=== PATIENT | male | born 1950 | race Caucasian/White ===

== ENCOUNTER 2021-06-19 09:54 | Inpatient (IN) | payer OTHER ==
[~2021-06-19] VITALS: Ht 190.5 cm; Wt 80.4 kg
[2021-06-19 10:39] LABS: BASOPHILS ABSOLUTE AUTO 0.08 K/mm3 (0.00-0.23); BASOPHILS PERCENT AUTO 1 % (0-2); EOSINOPHILS ABSOLUTE AUTO 0.05 K/mm3 (0.00-0.68); EOSINOPHILS PERCENT AUTO 1 % (0-6); Hematocrit 27.5 % (37.0-53.0); Hemoglobin 9.4 g/dL (13.5-17.5); IMMATURE GRAN ABSOLUTE AUTO 0.04 K/mm3 (0.00-0.10); IMMATURE GRAN PERCENT AUTO 0 % (0-1); LYMPHOCYTES PERCENT AUTO 23 % (21-46); MONOCYTES ABSOLUTE AUTO 0.91 K/mm3 (0.16-1.47); MONOCYTES PERCENT AUTO 10 % (4-13); Mean Corpuscular HGB 35.5 pg (26.0-34.0); Mean Corpuscular HGB Conc 34.2 g/dL (31.5-36.5); Mean Corpuscular Volume 104 fL (80-100); NEUTROPHILS ABSOLUTE AUTO 6.01 K/mm3 (1.96-9.15); NEUTROPHILS PERCENT AUTO 65 % (41-73); RDW Coefficient Variation 15.7 % (11.7-14.2); RDW Standard Deviation 59.9 fL (35.1-46.3); Red Blood Cell Count 2.65 M/mm3 (4.30-5.90); White Blood Cell Count 9.19 K/mm3 (4.00-11.30)
[2021-06-19 10:40] LABS: Mean Platelet Volume 11.4 fL (9.1-12.4)
[2021-06-19 10:51] LABS: Alanine Aminotransfer (ALT/SGP 34 U/L (12-78); Albumin, Blood 2.1 g/dL (3.4-5.0); Albumin/Globulin Ratio 0.6 (0.8-1.8); Alk Phos 196 U/L (50-136); Anion Gap 7 mmol/L (6-16); Aspartate Aminotrans (AST/SGOT 60 U/L (12-37); Bilirubin, Direct 0.9 mg/dL (0.0-0.3); Bilirubin, Indirect 1.4 mg/dL (0.1-0.7); Bilirubin, Total 2.3 mg/dL (0.1-1.0); Blood Urea Nitrogen 21 mg/dL (8-24); Bun/Creatinine Ratio 19.1 (12.0-20.0); CO2, Blood 25 mmol/L (21-32); Chloride, Blood 107 mmol/L (98-108); Globulin, Blood 3.7 g/dL (2.2-4.0); Glomerular Filtration Rate >60 (60-); Glucose, Blood 113 mg/dL (70-99); Magnesium, Blood 1.7 mg/dL (1.6-2.4); Potassium, Blood 3.8 mmol/L (3.5-5.5); Sodium, Blood 139 mmol/L (136-145); Total Protein, Blood 5.8 g/dL (6.4-8.2); Troponin I <0.015 ng/mL (0.000-0.040)
[2021-06-19 11:03] LABS: Platelet Count 108 K/mm3 (150-400)
[2021-06-19 11:06] LABS: International Normalized Ratio 1.31; Prothrombin Time Results 13.5 Sec (9.7-11.5)
[2021-06-19 13:13] LABS: Lactate Dehydrogenase, Body Fl 39 U/L; Protein, Body Fluid 0.7 g/dL
[2021-06-19 13:16] LABS: Automated BF WBC Count 0.106 K/mm3 (0-999); Body Fluid WBC Count 106 /mm3 (0-999)
[2021-06-19 14:11] LABS: RBC Count, Body Fluid 23 /mm3 (0-0)
[2021-06-19 14:16] LABS: Color, Body Fluid L Yellow (None-Yellow); Total Cell Count, Body Fluid 100
[2021-06-19 14:18] LABS: Appearance, Body Fluid Clear (Clear)
[2021-06-19 14:24] LABS: Influenza A, PCR NEGATIVE (NEGATIVE); Influenza B, PCR NEGATIVE (NEGATIVE); Resp Syncytial Virus, PCR NEGATIVE (NEGATIVE); SARS-Cov-2 (COVID-19) PCR, MMC NEGATIVE (NEGATIVE)
[2021-06-19 14:31] LABS: Hematocrit 25.2 % (37.0-53.0); Hemoglobin 8.4 g/dL (13.5-17.5)
--- NOTE | 2021-06-19 18:11 | NUR ---
SHIFT SUMMARY PT HAS BEEN RESTING, NAPPING OFF AND ON, SINCE ADMISSION. PT HAS EXPRESSED MILD DISCOMFORT WITH IV SITE AND TELEMETRY PATCHES, REPOSITIONG AND CARE WHEN HANDLING LINES AND CORDS HAVE BEEN UTILIZED TO ADDRESS DISCOMFORT. VSS SINCE ARRIVAL. NO ACUTE CHANGES TO CONDITION.
--- NOTE | 2021-06-19 19:35 | NUR ---
PATIENT LEFT FOR PROCEDURE, PRIOR TO LEAVING PATIENT WAS INAPPROPRIATE " HER PUSSY SMELLS CAN YOU IMAGINE?" BRENDA CHRISTIANBOWLING BALL PATCHER AND MYSELF DIDN'T ASK HIM TO ELABORATE AND IGNORED THE COMMENT. ANXIOUS ALERT, LUNGS ARE COARSE, RHONCHI FINE CRACKLES AT THE BASES WITH NOTED SOB AND WHEEZING WITH TALKING, ABDOMEN IS DISTENDED FIRM AND TENDER WITH HYPOACTIVE BT X 4, REFER TO ASSESSMENT FOR OTHER DETAILS.
--- NOTE | 2021-06-19 19:49 | NUR ---
INTO SDS VIA GURNEY FROM PCU. History, Chart, Medications and Allergies reviewed before start of procedure.Patient confirms NPO status and agrees with scheduled surgery.LUNGS COURSE AND DIMINISHED THROUGHOUT.ANESTHESIA NOTIFIED.PT CURRENTLY DOING BREATHING TREATMENT.
--- NOTE | 2021-06-19 20:07 | NUR ---
06/19/212006 Lauryn Cabezas History, Chart, Medications and Allergies reviewed before start of procedure.MONITOR INTACT WITH CONTINUOUS PULSE OXIMETRY, 3 LEAD AND INTERMITTENT BP.O2 VIA N/C INTACT THROUGHOUT SEDATION/PROCEDURE. See Anesthesia record
--- NOTE | 2021-06-19 21:09 | NUR ---
PATIENT RETURNED ALERT AND ORIENTATED, VSS AND WTCM PATIENT IS ABLE TO DRINK WATER NO NOTED DIFFICULTIES. REPORT GIVEN AT BED SIDE REQUESTED THAT SURGICAL MEDS BE REMOVED OR SIGNED OFF ON AUG.
[2021-06-19 21:40] LABS: Hematocrit 25.7 % (37.0-53.0); Hemoglobin 8.3 g/dL (13.5-17.5)
[2021-06-20 03:35] LABS: BASOPHILS ABSOLUTE AUTO 0.07 K/mm3 (0.00-0.23); BASOPHILS PERCENT AUTO 1 % (0-2); EOSINOPHILS ABSOLUTE AUTO 0.16 K/mm3 (0.00-0.68); EOSINOPHILS PERCENT AUTO 3 % (0-6); Hematocrit 22.7 % (37.0-53.0); Hemoglobin 7.5 g/dL (13.5-17.5); IMMATURE GRAN ABSOLUTE AUTO 0.02 K/mm3 (0.00-0.10); IMMATURE GRAN PERCENT AUTO 0 % (0-1); LYMPHOCYTES ABSOLUTE AUTO 1.73 K/mm3 (0.84-5.20); LYMPHOCYTES PERCENT AUTO 34 % (21-46); MONOCYTES ABSOLUTE AUTO 0.56 K/mm3 (0.16-1.47); MONOCYTES PERCENT AUTO 11 % (4-13); Mean Corpuscular HGB 35.4 pg (26.0-34.0); Mean Corpuscular Volume 107 fL (80-100); Mean Platelet Volume 10.8 fL (9.1-12.4); NEUTROPHILS ABSOLUTE AUTO 2.58 K/mm3 (1.96-9.15); NEUTROPHILS PERCENT AUTO 50 % (41-73); Platelet Count 84 K/mm3 (150-400); RDW Standard Deviation 62.7 fL (35.1-46.3); Red Blood Cell Count 2.12 M/mm3 (4.30-5.90); White Blood Cell Count 5.12 K/mm3 (4.00-11.30)
[2021-06-20 03:46] LABS: International Normalized Ratio 1.29; Prothrombin Time Results 13.3 Sec (9.7-11.5)
--- NOTE | 2021-06-20 04:41 | NUR ---
PATIENT REQUIRED 2L NC DESATURATIONS TO 88% WITH APNEIC MOMENTS WITH MOUTH BREATHING DURING SLEEP, INTERMITTENT HYPOTENSION NOTED, NORMAL SALINE RUNNING AT 75ML/HR WILL CONTINUE TO MONITOR UNTIL CHANGE OF SHIFT.
[2021-06-20 04:45] LABS: Alanine Aminotransfer (ALT/SGP 29 U/L (12-78); Albumin, Blood 1.8 g/dL (3.4-5.0); Albumin/Globulin Ratio 0.6 (0.8-1.8); Alk Phos 157 U/L (50-136); Anion Gap 5 mmol/L (6-16); Aspartate Aminotrans (AST/SGOT 49 U/L (12-37); Bilirubin, Total 1.6 mg/dL (0.1-1.0); Blood Urea Nitrogen 20 mg/dL (8-24); CO2, Blood 26 mmol/L (21-32); Chloride, Blood 110 mmol/L (98-108); Creatinine, Blood 1.11 mg/dL (0.60-1.20); Glomerular Filtration Rate >60 (60-); Glucose, Blood 121 mg/dL (70-99); Magnesium, Blood 1.7 mg/dL (1.6-2.4); Potassium, Blood 4.3 mmol/L (3.5-5.5); Sodium, Blood 141 mmol/L (136-145); Total Protein, Blood 4.8 g/dL (6.4-8.2)
[2021-06-20 09:10] LABS: HBSAG SCREEN Negative (Negative); HEP A AB, IGM Negative (Negative); HEP B CORE AB, IGM Negative (Negative); HEP B CORE AB, TOT Negative (Negative); HEP C VIRUS AB 0.3 (0.0-0.9)
--- NOTE | 2021-06-20 11:14 | NUR ---
PT TRANSPORTED TO IMAGING BY CART.
[2021-06-20 13:51] LABS: Hematocrit 23.2 % (37.0-53.0); Hemoglobin 7.5 g/dL (13.5-17.5)
--- NOTE | 2021-06-20 17:55 | NUR ---
SHIFT SUMMARY PT HAS BEEN ALERT AND ORIENTED, RESTING IN BED. PT HAS BEEN COOPERATIVE WITH CARE. PT HAS HAD MODERATE DIFFICULTY HEARING. PT C/O ABDOMINAL PAIN 8/10 PRIOR TO PARACENTESIS, TREATED PER EMAR DURING IMAGING, AND 4/10 POST PARACENTESIS. VSS NO ACUTE CHANGES IN CONDITION.
--- NOTE | 2021-06-20 21:04 | NUR ---
PATIENT LETHARGIC AT BEGINNING OF SHIFT, HYPOTENSIVE 75/46 RECEIVED NEW ORDERS FOR NORMAL SALINE 500ML BOLUS, PATIENT BECAME MORE ALERT AND ORIENTATED, SITTING UP IN BED SOB NOTED WITH TALKING WHEEZING AND DRY COUGH, UPON GETTING VITALS PATIENT STARTING TOUCHING HIMSELF INAPPROPRIATELY REPORTED TO CHARGE NURSES. PATIENT C/O OF BACK PAIN AFTER COMING BACK FROM PARENCENTESIS AND STILL IN PAIN 01/29 UNABLE TO GIVE PAIN MEDICATION AT THIS TIME R/T HYPOTENSIVE. WILL CONTINUE TO MONITOR VITALS.
--- NOTE | 2021-06-21 04:25 | NUR ---
SHIFT SUMMARY CLAUDIA: CLAUDIA REMAINED HYPOTENSIVE WITH NO SIGNS OF DISTRESS. WILL START MIDODRINE IN THE AM. HE HAD A GOOD NIGHT OF SLEEP, USED THE CALL LIGHT APPROPRIATELY.
[2021-06-21 04:49] LABS: BASOPHILS ABSOLUTE AUTO 0.06 K/mm3 (0.00-0.23); BASOPHILS PERCENT AUTO 1 % (0-2); EOSINOPHILS ABSOLUTE AUTO 0.17 K/mm3 (0.00-0.68); EOSINOPHILS PERCENT AUTO 4 % (0-6); Hematocrit 21.1 % (37.0-53.0); Mean Corpuscular HGB 35.9 pg (26.0-34.0); Mean Corpuscular HGB Conc 33.2 g/dL (31.5-36.5); Mean Corpuscular Volume 108 fL (80-100); Mean Platelet Volume 11.3 fL (9.1-12.4); Platelet Count 76 K/mm3 (150-400); RDW Coefficient Variation 15.9 % (11.7-14.2); RDW Standard Deviation 62.4 fL (35.1-46.3); Red Blood Cell Count 1.95 M/mm3 (4.30-5.90); White Blood Cell Count 4.29 K/mm3 (4.00-11.30)
[2021-06-21 05:01] LABS: IMMATURE GRAN ABSOLUTE AUTO 0.03 K/mm3 (0.00-0.10); IMMATURE GRAN PERCENT AUTO 1 % (0-1); LYMPHOCYTES ABSOLUTE AUTO 1.39 K/mm3 (0.84-5.20); LYMPHOCYTES PERCENT AUTO 32 % (21-46); MONOCYTES ABSOLUTE AUTO 0.53 K/mm3 (0.16-1.47); MONOCYTES PERCENT AUTO 12 % (4-13); NEUTROPHILS ABSOLUTE AUTO 2.11 K/mm3 (1.96-9.15); NEUTROPHILS PERCENT AUTO 49 % (41-73)
[2021-06-21 05:59] LABS: Alanine Aminotransfer (ALT/SGP 25 U/L (12-78); Albumin, Blood 2.2 g/dL (3.4-5.0); Albumin/Globulin Ratio 0.8 (0.8-1.8); Alk Phos 139 U/L (50-136); Anion Gap 4 mmol/L (6-16); Aspartate Aminotrans (AST/SGOT 40 U/L (12-37); Bilirubin, Total 1.6 mg/dL (0.1-1.0); Blood Urea Nitrogen 19 mg/dL (8-24); CO2, Blood 27 mmol/L (21-32); Calcium, Blood 7.9 mg/dL (8.5-10.1); Chloride, Blood 108 mmol/L (98-108); Globulin, Blood 2.6 g/dL (2.2-4.0); Glomerular Filtration Rate >60 (60-); Glucose, Blood 103 mg/dL (70-99); Potassium, Blood 4.1 mmol/L (3.5-5.5); Sodium, Blood 139 mmol/L (136-145); Total Protein, Blood 4.8 g/dL (6.4-8.2)
[2021-06-21 15:13] LABS: Hematocrit 23.3 % (37.0-53.0); Hemoglobin 7.8 g/dL (13.5-17.5)
--- NOTE | 2021-06-21 17:41 | NUR ---
PATIENT'S FRIEND UNABLE TO PICK PATIENT UP TODAY FOR DISCHARGE.
--- NOTE | 2021-06-21 18:47 | NUR ---
SHIFT SUMMARY PATIENT RESTING IN BED. PATIENT HYPOTENSIVE T/O SHIFT WITH NO SIGNS OF DISTESS. MEDICATED PER AUG. PATIENT ADAMENT ABOUT GOING HOME TODAY AND BECAME VERY AGITATED. ONCE DISCHARGE ORDERS IN PLACE PATIENT FOUND OUT FRIEND WAS UNABLE TO TAKE HIM HOME TODAY AND WAS MORE AGREEABLE TO STAYING. NO SIGNIFICANT EVENTS T/O SHIFT. WILL CONTINUE TO MONITOR.
[2021-06-22] MEDS ORDERED: FURO20 PO (12:46)
[2021-06-22] MEDS ORDERED: Midodrine HCl5 MG PO (12:47)
[2021-06-22] MEDS ORDERED: LACT10SY PO (12:47)
[2021-06-22] MEDS ORDERED: VISBIOME 112.51 EACH PO (12:48)
[2021-06-22] MEDS ORDERED: SPIR50 PO (12:48)
[2021-06-22] MEDS ORDERED: CEPH500 PO (12:48)
[2021-06-22] MEDS ORDERED: PANT40 PO (12:50)
--- NOTE | 2021-06-22 16:38 | NUR ---
DISCHARGE SUMMARY: PATIENT REPORTED SOME PAIN THROUGHOUT THE SHIFT RELATED TO A PULLED MUSCLE. DENIED NEED FOR INTERVENTION. PATIENT ABLE TO TRANSFER INDEPENDENTLY TO CHAIR AND BSC. PATIENT TOLERATED BEING ON ROOM AIR AND DID NOT QUALIFY FOR HOME O2 WITH RT. PATIENT TO BE DISCHARGED TODAY. PATIENT'S NEIGHBOR CAME TO GET THE PATIENT. PATIENT REFUSED TO GIVE THE NEIGHBOR HIS MEDICARE CARD TO GET THE PRESCRIPTIONS. NEIGHBOR ATTEMPTED WITH [facility], BUT WAS TURNED AWAY FROM [facility]. PATIENT'S NEIGHBOR WAS FORCED TO LEAVE BEFORE TRANSFERRING PATIENT HOME DUE TO TIME CONSTRAINTS. PATIENT REPORTED THAT IF WE WERE ABLE TO ASSIST WITH TRANSFER HOME, THAT HE COULD GET INTO HIS WHEELCHAIR AT HOME AND DRIVE TO [facility]. PATIENT ASSURED RN THAT HE WOULD TRY TO GET TO THE PHARMACY TONIGHT. LAST DOSE OF MIDODRINE GIVEN PRIOR TO DISCHARGE. DISCUSSED WITH NIKKO WILDER AND ELIDA PAY CAB RIDE WAS ARRANGED. PATIENT NOTIFIED NEIGHBOR AND THEY REPORTED THAT THEY WOULD BE ABLE TO HELP GET THE PATIENT'S WHEELCHAIR FROM THE HOUSE TO THE CAB. PATIENT AFFIRMED THAT HE WANTED TO GO TONIGHT AND THAT HE DID NOT WANT TO RETURN, THEREFORE, HE WAS GOING TO TAKE THE STEPS/MEDICATION TO AVOID HOSPITALIZATION. PATIENT DISCHARGED WITH COMPLIANCE TESTING ANALYST TO WAITING CAB. PATIENT STABLE AT TIME OF DISCHARGE.
== END 2021-06-22 16:20 | disposition home health service (06) | DRG 432 ==
LOC: ER 09:54 → ERHOLD 13:03 → PCU 13:03 → MEDS 06-20 22:31
PROVIDERS: Nurse Practitioner Acute Care; Physician Assistant; Student in an Organized Health Care Education/Training Program; ADMIT Internal Medicine
PROC: 0DJ08ZZ Inspection of Upper Intestinal Tract, Via Natural or Artificial Opening Endoscopic (ICD-10-PCS; 2021-06-19)
PROC: 0W9G3ZX Drainage of Peritoneal Cavity, Percutaneous Approach, Diagnostic (ICD-10-PCS; principal; 2021-06-19 15:45)
PROC: 0W9G3ZZ Drainage of Peritoneal Cavity, Percutaneous Approach (ICD-10-PCS; 2021-06-20)
DX: K70.31 Alcoholic cirrhosis of liver with ascites (principal); G93.41 Metabolic encephalopathy; I81 Portal vein thrombosis; K92.1 Melena; D62 Acute posthemorrhagic anemia; E87.2 Acidosis; K76.6 Portal hypertension; E72.20 Disorder of urea cycle metabolism, unspecified; I85.10 Secondary esophageal varices without bleeding; J90 Pleural effusion, not elsewhere classified; J98.11 Atelectasis; Z20.822 Contact with and (suspected) exposure to COVID-19; K26.9 Duodenal ulcer, unspecified as acute or chronic, without hemorrhage or perforation; K20.90 Esophagitis, unspecified without bleeding; D69.6 Thrombocytopenia, unspecified; I95.9 Hypotension, unspecified; K31.89 Other diseases of stomach and duodenum; R16.1 Splenomegaly, not elsewhere classified; D63.8 Anemia in other chronic diseases classified elsewhere; E78.5 Hyperlipidemia, unspecified; F17.210 Nicotine dependence, cigarettes, uncomplicated; Z88.5 Allergy status to narcotic agent; Z79.899 Other long term (current) drug therapy; Z89.511 Acquired absence of right leg below knee; Z89.022 Acquired absence of left finger(s); Z89.021 Acquired absence of right finger(s)
CPT/HCPCS: 0241U; 36415; 49083; 71045; 74177; 78278; 80048; 80053; 80074; 80076; 82105; 82140; 83605; 83615; 83690; 83735; 83880; 84145; 84157; 84484; 85014; 85018; 85025; 85610; 85730; 86317; 86704; 86708; 86803; 86850; 86900; 86901; 87070; 87075; 87205; 87340; 89051; 93005; 93010; 94761; 94762; 96365-59; 96366-59; 96368; 96375-59; 96376-59; 97110; 97162; 97166; 97530; 97535; 99285-25; A9270; A9560; C9113; J0696; J2001; J2354; J2370; J2405; J2704; J2765; J3010; J7030; J7050; J7120; P9046; Q9967

== ENCOUNTER 2021-06-24 15:31 | Inpatient (IN) | payer OTHER ==
[~2021-06-24] VITALS: Ht 190.5 cm; Wt 83.9 kg
[~2021-06-24 15:31] MED LIST: CEPH500 PO; FURO20 PO; LACT10SY PO; Midodrine HCl5 MG PO; PANT40 PO; SPIR50 PO; VISBIOME 112.51 EACH PO
[2021-06-24 15:59] LABS: BASOPHILS ABSOLUTE AUTO 0.11 K/mm3 (0.00-0.23); BASOPHILS PERCENT AUTO 1 % (0-2); EOSINOPHILS ABSOLUTE AUTO 0.17 K/mm3 (0.00-0.68); EOSINOPHILS PERCENT AUTO 1 % (0-6); Hematocrit 18.9 % (37.0-53.0); Hemoglobin 6.2 g/dL (13.5-17.5); IMMATURE GRAN ABSOLUTE AUTO 0.09 K/mm3 (0.00-0.10); IMMATURE GRAN PERCENT AUTO 1 % (0-1); LYMPHOCYTES ABSOLUTE AUTO 2.93 K/mm3 (0.84-5.20); LYMPHOCYTES PERCENT AUTO 21 % (21-46); MONOCYTES ABSOLUTE AUTO 1.66 K/mm3 (0.16-1.47); MONOCYTES PERCENT AUTO 12 % (4-13); Mean Corpuscular HGB 35.8 pg (26.0-34.0); Mean Corpuscular HGB Conc 32.8 g/dL (31.5-36.5); Mean Corpuscular Volume 109 fL (80-100); Mean Platelet Volume 10.8 fL (9.1-12.4); NEUTROPHILS ABSOLUTE AUTO 9.15 K/mm3 (1.96-9.15); NEUTROPHILS PERCENT AUTO 65 % (41-73); NRBC ABSOLUTE 0.02 K/mm3 (0.00-0.02); NRBC Auto 0.1 /100 WBC (0.0-0.2); Platelet Count 145 K/mm3 (150-400); RDW Coefficient Variation 17.6 % (11.7-14.2); RDW Standard Deviation 68.2 fL (35.1-46.3); Red Blood Cell Count 1.73 M/mm3 (4.30-5.90); White Blood Cell Count 14.11 K/mm3 (4.00-11.30)
[2021-06-24 16:13] LABS: Alanine Aminotransfer (ALT/SGP 32 U/L (12-78); Albumin, Blood 2.1 g/dL (3.4-5.0); Albumin/Globulin Ratio 0.8 (0.8-1.8); Alk Phos 212 U/L (50-136); Anion Gap 6 mmol/L (6-16); Aspartate Aminotrans (AST/SGOT 65 U/L (12-37); Bilirubin, Total 1.7 mg/dL (0.1-1.0); Blood Urea Nitrogen 29 mg/dL (8-24); Bun/Creatinine Ratio 30.9 (12.0-20.0); CO2, Blood 25 mmol/L (21-32); Chloride, Blood 104 mmol/L (98-108); Creatinine, Blood 0.94 mg/dL (0.60-1.20); Globulin, Blood 2.7 g/dL (2.2-4.0); Glomerular Filtration Rate >60 (60-); Glucose, Blood 112 mg/dL (70-99); Potassium, Blood 3.3 mmol/L (3.5-5.5); Sodium, Blood 135 mmol/L (136-145); Total Protein, Blood 4.8 g/dL (6.4-8.2); Troponin I <0.015 ng/mL (0.000-0.040)
[2021-06-24 16:44] LABS: Influenza A, PCR NEGATIVE (NEGATIVE); Influenza B, PCR NEGATIVE (NEGATIVE); Resp Syncytial Virus, PCR NEGATIVE (NEGATIVE); SARS-Cov-2 (COVID-19) PCR, MMC NEGATIVE (NEGATIVE)
[2021-06-24 18:30] LABS: Source, Urine Catheter
--- NOTE | 2021-06-24 18:38 | NUR ---
8.0 ETT, 25 CM AT UPPER GUMS
[2021-06-24 18:55] LABS: Appearance, Urine Hazy (Clear); Bilirubin, Urine Neg (Neg); Blood, Urine Neg (Neg); Color, Urine Yellow (P-Yellow); Glucose Qualitative, Urine Neg (Neg); Ketones, Urine Neg (Neg); Leukocyte Esterase, Urine Neg (Neg); Nitrite, Urine Neg (Neg); Protein, Urine 1+ (Neg); Urobilinogen, Urine NORM (Normal)
[2021-06-24 18:57] LABS: Bacteria Rare /hpf; Red Blood Cells, Urine 0-2 /hpf (0-2); Squamous Epithelial Cells Few /hpf (Few); White Blood Cells, Urine 0-2 /hpf (0-5)
[2021-06-24 19:27] LABS: International Normalized Ratio 1.34; Prothrombin Time Results 13.8 Sec (9.7-11.5)
[2021-06-24 22:46] LABS: Hematocrit 24.2 % (37.0-53.0); Hemoglobin 8.1 g/dL (13.5-17.5)
[2021-06-25 03:55] LABS: Hematocrit 24.9 % (37.0-53.0); Hemoglobin 8.1 g/dL (13.5-17.5); Mean Corpuscular HGB 32.3 pg (26.0-34.0); Mean Corpuscular HGB Conc 32.5 g/dL (31.5-36.5); Mean Platelet Volume 10.5 fL (9.1-12.4); NRBC ABSOLUTE 0.03 K/mm3 (0.00-0.02); NRBC Auto 0.1 /100 WBC (0.0-0.2); Platelet Count 123 K/mm3 (150-400); RDW Coefficient Variation 24.8 % (11.7-14.2); RDW Standard Deviation 86.2 fL (35.1-46.3); Red Blood Cell Count 2.51 M/mm3 (4.30-5.90); White Blood Cell Count 20.64 K/mm3 (4.00-11.30)
[2021-06-25 04:07] LABS: Mean Corpuscular Volume 99 fL (80-100)
[2021-06-25 04:12] LABS: Albumin, Blood 1.7 g/dL (3.4-5.0); Albumin/Globulin Ratio 0.6 (0.8-1.8); Bilirubin, Total 2.2 mg/dL (0.1-1.0); Bun/Creatinine Ratio 28.1 (12.0-20.0); Calcium, Blood 7.6 mg/dL (8.5-10.1); Creatinine, Blood 1.21 mg/dL (0.60-1.20); Globulin, Blood 2.8 g/dL (2.2-4.0); Total Protein, Blood 4.5 g/dL (6.4-8.2)
[2021-06-25 04:40] LABS: BAND PERCENT MAN 6 % (0-8); BASOPHILS PERCENT MAN 0 % (0-2); EOSINOPHILS PERCENT MAN 0 % (0-6); LYMPHOCYTES ABSOLUTE MAN 1.65 K/mm3 (0.84-5.20); LYMPHOCYTES PERCENT MAN 8 % (21-46); MONOCYTES ABSOLUTE MAN 2.27 K/mm3 (0.16-1.47); MONOCYTES PERCENT MAN 11 % (4-13); NEUTROPHILS ABSOLUTE MAN 16.71 K/mm3 (1.96-9.15); SEG NEUTROPHILS PERCENT MAN 75 % (41-73); TOTAL CELLS COUNTED 100
--- NOTE | 2021-06-25 06:03 | NUR ---
SPOKE WITH DR. HILTON REGARDING LABILE BLOOD PRESSURES OVER THE LAST COUPLE HOURS WITH MAPS HOLDING IN LOW 60S, ALSO HAVING TO SLOWLY TITRATE UP LEVOPHED AT THE SAME TIME. 1L NS BOLUS ORDERED WELL ALBUMIN BOLUS TO START NOW WELL REPEAT IN 2HRS. HGB HOLDING STEADY AT 8.1. LEVOPHED AT 4MCG/MIN. PROPOFOL HAS BEEN TITRATED FREQUENTLY. IT HAS BEEN AT 15-30 OVERNIGHT. HE HAS HAD 5 MEDIUM TO LARGE DARK RED BOWEL MOVEMENTS AND 150 OF DARK BROWN OUTPUT FROM OG
--- NOTE | 2021-06-25 07:40 | NUR ---
Received report from Nydia CHRISTIAN. Patient is intubated and lightly sedated. He has 8.0 ET and is 25cm at gums with vents settings of 16/500/30/5 and sats 93%. He arouses to verbal and painful stimuli. He has OG in place to LIS and dark brown gastric contents. He has 20ga LFA and is infusing NS at 250 ml/hr and Protonix at 10 ml/hr. He has 20ga IV to RFA and is infusing Propofol at 15 mcg/kg/min and Lvevophed at 5 mcg/min. He also has 20ga to RW and is infusing Octreotide at 25ml/hr. He has 14 Fr Velez draining to gravity light geovany colored urin in adequate amounts. SCD to LLE and RBKA. Oral care, repositioning and am meds finished.
--- NOTE | 2021-06-25 08:21 | NUR ---
06/25/21 0821 Jozef Butler History, Chart, Medications and Allergies reviewed before start of procedure.MONITOR INTACT WITH CONTINUOUS PULSE OXIMETRY AND INTERMITTENT BP.PT INTUBATED. Bite Block Placed, WILL BE REMOVED AFTER PROCEDURE. PT BEING MEDICATED BY SUPERVISOR FURNACE PROCESS PT IS INTUBATED.
--- NOTE | 2021-06-25 09:34 | NUR ---
Patient has had upper scope by Dr Ji, nothing found. Protonix 40 mg daily and drip stopped, Octreotide gtt stopped. Single dose of reglan ordered and one more Albumin at 1100. Increased Propofol to 30 mcg/kg/min and Levophed to 10 mcg/min and will start to wean for possible extubation.
[2021-06-25 10:53] LABS: Hemoglobin 5.9 g/dL (13.5-17.5)
--- NOTE | 2021-06-25 11:30 | NUR ---
Patient had sedation off and tolerated on Spon mode PS 5/30/5 and sats >90%. Levophed remains at 10 mcg/min and systolics 100. R/T increased secretion from ET Dr Rubio decided not to extubate and continue spon mode as long as [id number]. Placed back on 20 mcg/kg/min Propofol and increased Levophed to 12 mcg/min, tolerating well.
--- NOTE | 2021-06-25 13:40 | NUR ---
Patient continues to have liquid maroon stool and changed linen and repositioned. Started 3rd unit PRBC. Dr Rubio consulted IR for bleed. Abd. xray done. No changes to vent or gtt's.
--- NOTE | 2021-06-25 15:30 | NUR ---
No significant changes with patient Vent settings spon mode 5/30/5 and sats >90%.. Levophed at 12 mcg/min and Propofol at 20 mcg/kg/min and NS at 100 ml/hr. We continue to clean him up for liquid maroon stool.
--- NOTE | 2021-06-25 18:00 | NUR ---
Cleaned patient up again and had small amount of maroon bloody stool. #rd PRBC finished and started PICC Line in [place] foe increased Levophed volumes. Gave quick bath. PICC line wrappen in coban as would noty stop oozing. Vent settings remain at Spon mode PS 5/30/5 and sats >90%. IV 2700 ml in and 750 urine from Velez.
[2021-06-25 18:12] LABS: Hematocrit 20.2 % (37.0-53.0); Hemoglobin 6.8 g/dL (13.5-17.5)
--- NOTE | 2021-06-25 20:30 | NUR ---
ASSUMED CARE OF PT: PT INTUBATED, SEDATED AND W SBW RESTRAINTS, CURRENTLY ON PS AND ABLE TO OPEN EYES, TURN HEAD SIDE TO SIDE AND MOVE HANDS. PT IS CURRENTLY CALM AND RESTFUL. CONT W LEVOPHED ANT 12MCG/MIN, SEE FLOW SHEET. PASSING FLATUS AND MAROON STOOL, ABD IS DISTENDED AND W TYMPANIC BT. WILL REPLACE OG, AND SEE IF WE CAN DECOMPRESS STOMACH. MONITOR SERIAL H&H.
--- NOTE | 2021-06-25 22:30 | NUR ---
DR HILTON CALLED TO CHECK PT STATUS, UPDATE PROVIDED AND ORDERS REC'D, INCLUDING TRANSFUSION PARAMETER.
[2021-06-26 00:33] LABS: Hematocrit 20.8 % (37.0-53.0)
--- NOTE | 2021-06-26 00:45 | NUR ---
VASOPRESSIN WAS ADDED PER DR HILTON ORDER. LEVOPHED HAS BEEN TITRATED TO 16MCG/MIN. PT RESP RATE INCREASED TO 30'S AND CHANGED TO AC/VC PER RT. CONT TO SXN STAPLETON SECRETIONS, MINIMAL TO MODERATE AMT, LIKELY TINGED W GASTRIC CONT FROM EARLIER ASPIRATION. OG WAS PLACED WO DIFFICULTY AND DK BROWN/BLACK GASTRIC CONT ASPIRATED. OG WAS FLUSHED W APPROX 200ML H2O.
[2021-06-26 05:41] LABS: Albumin, Blood 2.3 g/dL (3.4-5.0); Anion Gap 8 mmol/L (6-16); Blood Urea Nitrogen 27 mg/dL (8-24); Bun/Creatinine Ratio 27.6 (12.0-20.0); CO2, Blood 23 mmol/L (21-32); Calcium, Blood 7.3 mg/dL (8.5-10.1); Chloride, Blood 106 mmol/L (98-108); Creatinine, Blood 0.98 mg/dL (0.60-1.20); Ferritin, Serum 305 ng/mL (26-388); Glomerular Filtration Rate >60 (60-); Glucose, Blood 139 mg/dL (70-99); Iron Serum 18 ug/dL (65-175); Percent Saturation 12.2 % (20.0-50.0); Phosphorus, Blood 2.2 mg/dL (2.5-4.9); Potassium, Blood 3.5 mmol/L (3.5-5.5); Sodium, Blood 137 mmol/L (136-145); Total Iron Binding Capacity 148 ug/dL (250-450)
[2021-06-26 06:00] LABS: BASOPHILS ABSOLUTE AUTO 0.07 K/mm3 (0.00-0.23); BASOPHILS PERCENT AUTO 1 % (0-2); EOSINOPHILS ABSOLUTE AUTO 0.05 K/mm3 (0.00-0.68); EOSINOPHILS PERCENT AUTO 0 % (0-6); Hematocrit 21.4 % (37.0-53.0); Hemoglobin 7.2 g/dL (13.5-17.5); IMMATURE GRAN PERCENT AUTO 1 % (0-1); LYMPHOCYTES ABSOLUTE AUTO 1.11 K/mm3 (0.84-5.20); LYMPHOCYTES PERCENT AUTO 8 % (21-46); MONOCYTES ABSOLUTE AUTO 1.26 K/mm3 (0.16-1.47); MONOCYTES PERCENT AUTO 9 % (4-13); Mean Corpuscular HGB 32.6 pg (26.0-34.0); Mean Corpuscular HGB Conc 33.6 g/dL (31.5-36.5); Mean Corpuscular Volume 97 fL (80-100); Mean Platelet Volume 11.5 fL (9.1-12.4); NEUTROPHILS ABSOLUTE AUTO 11.34 K/mm3 (1.96-9.15); NEUTROPHILS PERCENT AUTO 81 % (41-73); NRBC ABSOLUTE 0.02 K/mm3 (0.00-0.02); NRBC Auto 0.1 /100 WBC (0.0-0.2); Platelet Count 97 K/mm3 (150-400); RDW Coefficient Variation 25.2 % (11.7-14.2); RDW Standard Deviation 81.4 fL (35.1-46.3); Red Blood Cell Count 2.21 M/mm3 (4.30-5.90); White Blood Cell Count 13.93 K/mm3 (4.00-11.30)
--- NOTE | 2021-06-26 06:00 | NUR ---
PROPOFOL TITRATED TO 20MCG/KG/MIN FOR LABILE BP, LEVOPHED CONT AT 16MCG/MIN AND VASOPRESSIN CONT AT 0.04UNITS/MIN. PT HAS HAD LINEN CHANGE APPROX 4 TIMES THIS SHIFT, SMALL TO MOD VOLUME MAROON STICKY STOOL. NO OUTPUT PER NG EXCEPT FOR FLUSH VOLUME, CONT DK BROWN/BLACK. CONT W WRISTS RESTRAINED, REPORT TO DAYSHIFT.
--- NOTE | 2021-06-26 07:24 | NUR ---
Received report from Cynhtia CHRISTIAN. Patient remains intubated and sedated. His has 8.0 ET and 25 cm at gums with vent settings of 16/500/30/5 and sats 96%. OG in place and is on LIS with dark gastric output. He has 14 Fr. Velez draining to gravity and has geovany colored output.Bilateral soft wrist restraints in place to protect patient from pulling at lines and tubes. SCD to LLE. He has 20 ga IV to RAC and is flushed and SL. He also has PICC in [facility] and is infusing Propofol at 20 mcg/kg/min, Levophed 16 mcg/min, Vasopressin 0.04 units/min, NS 100 ml/hr. Patient Sr 60-80 and systolic 90-100's. Repositioned and oral care done.
--- NOTE | 2021-06-26 10:00 | NUR ---
Patients drips remains the same, Propofol 20 mcg/kg/min, Levophed 16 mcg/min, Vaso 0.04 units/min, NS TKO. RT placed on Spon. mode and sats 98%. patient awakens and then quickly falls a sleep. Repositioned.
--- NOTE | 2021-06-26 12:29 | NUR ---
Patient remain on spon and sats 98%. No changes to gtt's. CXRAY done, he continues to pass flatulance and small amounts of maroon blood. Will start tube feeds at noon. Repositioned.
[2021-06-26 13:07] LABS: Hematocrit 18.6 % (37.0-53.0); Hemoglobin 6.3 g/dL (13.5-17.5)
--- NOTE | 2021-06-26 13:30 | NUR ---
Vent settings remain at spon. mode annd PS 5/30/5 RR 20's sats >95%.TF started at 25 ml/hr with 30 ml/q4. Propofol increased to 25 mcg/kg/min R/T increased agitation and Levophed to 18 mcg/min, no other gtt setting changes. PICC line dressing changed. Repositioned, Oral care done.
--- NOTE | 2021-06-26 18:10 | NUR ---
Patient remains intubated and sedated, he is on spon. mode PS 5/30/5 and sats 97%. OG in place and is infusing VHP at 25ml/hr and 30 ml/q4 water flush. He has PICC line to [facility] and is infusing Propofol at 25 mcg/kg/min, Levophed at 18 mcg/min, Vasopressin 0.04 units/min, NS 100 ml/hr, PRBC 4th unit. He has weeping edema bilaterally UE's and stay dries in place with extremities elevated. He has 14Fr arnold draining to gravity and had 700 ml geovany urine output. He is RBKA and has SCD on LLE. He has had several maroon stools and approx 30-100 ml's each time. SR 60-70 and systolics 90-110. He has bilateral soft restraints to UE's.
--- NOTE | 2021-06-26 19:11 | NUR ---
ASSUMED CARE OF PT AT 1915. REPORT RECEIVED AT BEDSIDE. PT PRESENTS IN BED. INTUBATED. RECEIVING UNIT PRBC'S. NO S/S TRANSFUSION REACTION. MAINTAINS SATURATION > 90 PERCENT. NO DISTRESS. OF NOTE: PERIPHERAL WEEPING FROM PREVIOUS IV AND OTHER ACCESS SITES. WILL CONTINUE TO MONITOR. WILL REVIEW CHART AND PLAN OF CARE FOR THIS PT.
--- NOTE | 2021-06-26 21:54 | NUR ---
FULL BEDBATH DONE FOR PT. DID INCREASE PROPOFOL FOR BATH TOLERANCE. HAVE SUCTIONED PT PER ETT. RETURN OF STAPLETON COLORED SECRETIONS. DID SEND SAMPLE TO LAB FOR PROCESSING. OF NOTE: PT HAS WEEPING EDEMA FROM UPPER EXTREMITIES. WITH TURNS AND COUGH, PT HAS MAROON/BLACK LOOSE STOOL OUTPUT. DID PLACE RECTAL COLLECTION BAG. PT BECOMES DYSPNEIC WITH BATH AND TURNS. DID INCREASE FIO2 FOR TURNS. WILL CONTINUE TO MONITOR PT.
[2021-06-26 22:33] LABS: Hematocrit 21.6 % (37.0-53.0); Hemoglobin 7.3 g/dL (13.5-17.5)
[2021-06-27 05:44] LABS: International Normalized Ratio 1.23; Prothrombin Time Results 12.7 Sec (9.7-11.5)
[2021-06-27 05:47] LABS: Alanine Aminotransfer (ALT/SGP 22 U/L (12-78); Albumin, Blood 2.4 g/dL (3.4-5.0); Albumin/Globulin Ratio 1.1 (0.8-1.8); Alk Phos 107 U/L (50-136); Anion Gap 8 mmol/L (6-16); Aspartate Aminotrans (AST/SGOT 36 U/L (12-37); Bilirubin, Direct 1.2 mg/dL (0.0-0.3); Bilirubin, Indirect 2.1 mg/dL (0.1-0.7); Bilirubin, Total 3.3 mg/dL (0.1-1.0); Blood Urea Nitrogen 19 mg/dL (8-24); Bun/Creatinine Ratio 26.1 (12.0-20.0); CO2, Blood 23 mmol/L (21-32); Calcium, Blood 7.4 mg/dL (8.5-10.1); Chloride, Blood 104 mmol/L (98-108); Creatinine, Blood 0.73 mg/dL (0.60-1.20); Globulin, Blood 2.2 g/dL (2.2-4.0); Glomerular Filtration Rate >60 (60-); Glucose, Blood 127 mg/dL (70-99); Phosphorus, Blood 1.2 mg/dL (2.5-4.9); Sodium, Blood 135 mmol/L (136-145); Total Protein, Blood 4.6 g/dL (6.4-8.2)
[2021-06-27 05:58] LABS: BASOPHILS ABSOLUTE AUTO 0.06 K/mm3 (0.00-0.23); BASOPHILS PERCENT AUTO 1 % (0-2); EOSINOPHILS ABSOLUTE AUTO 0.26 K/mm3 (0.00-0.68); EOSINOPHILS PERCENT AUTO 3 % (0-6); Hematocrit 22.4 % (37.0-53.0); Hemoglobin 7.4 g/dL (13.5-17.5); IMMATURE GRAN PERCENT AUTO 1 % (0-1); LYMPHOCYTES ABSOLUTE AUTO 0.95 K/mm3 (0.84-5.20); LYMPHOCYTES PERCENT AUTO 10 % (21-46); MONOCYTES ABSOLUTE AUTO 0.81 K/mm3 (0.16-1.47); MONOCYTES PERCENT AUTO 8 % (4-13); Mean Corpuscular HGB 32.2 pg (26.0-34.0); Mean Corpuscular Volume 97 fL (80-100); Mean Platelet Volume 11.1 fL (9.1-12.4); NEUTROPHILS ABSOLUTE AUTO 7.54 K/mm3 (1.96-9.15); NEUTROPHILS PERCENT AUTO 78 % (41-73); Platelet Count 85 K/mm3 (150-400); RDW Standard Deviation 79.7 fL (35.1-46.3); White Blood Cell Count 9.72 K/mm3 (4.00-11.30)
--- NOTE | 2021-06-27 06:30 | NUR ---
HAVE BROUGHT PROPOFOL TO 35 MCG'S WHICH HELPS KEEP PT WITH SAS 3-4. PT MAINTAINS SATURATION > 90 PERCENT WITH FIO2 AT 30. CONTINUES WITH WEEPING EDEMA TO UPPER EXTREMITIES. SUCTIONING OF PT PER ETT RETURNS THICK STAPLETON COLORED SECRETIONS. ELECTROLYTE PROTOCOL TO CORRECT LOW PHOS AND POTASSIUM LEVELS. WILL CONTINUE TO MONITOR PT, AND WILL REPORT OFF TO ONCOMING RN.
[2021-06-27 16:06] LABS: Hematocrit 19.8 % (37.0-53.0); Hemoglobin 6.6 g/dL (13.5-17.5)
--- NOTE | 2021-06-27 17:46 | NUR ---
SHIFT SUMMARY NO ACUTE CHANGES THIS SHIFT. PT REMAINS INTUBATED AND SEDATED. PT ON SEDATION VACATION MOST OF THIS SHIFT AND WITH VENT SETTINGS PS 5/5, FIO2 30%. PT ABLE TO SQUEEZE HANDS UPON COMMAND WITH PROPOFOL OFF, BUT REMAINED LETHARGIC. PT BECAME RESTLESS THIS AFTERNOON AND RR INCREASING TO 50'S. PROPOFOL RESTARTED AT 40 MCG/KG/HR AND PT SWITCHED BACK TO AC 16, TV 500, PEEP 5, FIO2 40%. PT WITH LARGE AMOUNT OF THICK STAPLETON SECRETIONS WITH ETT SUCTION THIS SHIFT. COUGH AND GAG PRESENT THIS AFTERNOON. PICC TO [place] REMAINS C/D/I. NS INFUSING AT 100 ML/HR. LEVOPHED TITRATED DOWN TO 8 MCG/MIN THIS SHIFT, VASOPRESSIN INFUSING AT 0.04 UNITS/HR. VITAL SIGNS HAVE REMAINED STABLE. OGT REMAINS IN PLACE WITH TF INFUSING AT GOAL RATE. SANCHES REMAINS IN PLACE WITH DARK DEEPTI URINE OUTPUT NOTED. RECTAL BAG REMAINS INTACT WITH MINIMAL AMOUNT OF BLACK LIQUID OUTPUT NOTED. PT REMAINS WITH WEEPING EDEMA TO BUE'S. SBW RESTRAINTS REMAIN IN PLACE. WILL CONTINUE TO MONITOR AND REPORT OFF TO ONCOMING RN.
--- NOTE | 2021-06-27 18:11 | NUR ---
Received a call from ACUPUNCTURIST regarding new information yesterday from pt's neighbor. Vick Paredes @ [phone] is pt's neighbor and she informs us that pt has been living alone with no visitors since she has known him, and states she was asked to take his animals to a senior care, and when she went inside his home, she found it in complete disrepair and dissaray. She states there's "tons of bugs" in the home, as well as feces, urine and blood covering the floor. Care management involved. He likely needs placement. He remains intubated.
[2021-06-27 22:13] LABS: Hematocrit 19.9 % (37.0-53.0); Hemoglobin 6.6 g/dL (13.5-17.5)
--- NOTE | 2021-06-27 23:07 | NUR ---
CALL PLACED TO DR. HILTON REGARDING H&H AT 2200. INFORMED THAT THERE HAVE BEEN NO CHANGES IN PATIENT STATUS AND STILL NO OBVIOUS SIGNS OF BLEEDING. PER DR. HILTON, THERE IS NO PLAN TO TRANSFUSE UNLESS HE CONTINUES TO DROP
[2021-06-28 05:06] LABS: BASOPHILS ABSOLUTE AUTO 0.04 K/mm3 (0.00-0.23); BASOPHILS PERCENT AUTO 1 % (0-2); EOSINOPHILS ABSOLUTE AUTO 0.13 K/mm3 (0.00-0.68); EOSINOPHILS PERCENT AUTO 2 % (0-6); Hematocrit 20.8 % (37.0-53.0); Hemoglobin 6.9 g/dL (13.5-17.5); IMMATURE GRAN ABSOLUTE AUTO 0.05 K/mm3 (0.00-0.10); IMMATURE GRAN PERCENT AUTO 1 % (0-1); LYMPHOCYTES ABSOLUTE AUTO 0.64 K/mm3 (0.84-5.20); LYMPHOCYTES PERCENT AUTO 10 % (21-46); MONOCYTES ABSOLUTE AUTO 0.67 K/mm3 (0.16-1.47); MONOCYTES PERCENT AUTO 10 % (4-13); Mean Corpuscular HGB 32.2 pg (26.0-34.0); Mean Corpuscular HGB Conc 33.2 g/dL (31.5-36.5); Mean Corpuscular Volume 97 fL (80-100); Mean Platelet Volume 11.6 fL (9.1-12.4); NEUTROPHILS ABSOLUTE AUTO 5.19 K/mm3 (1.96-9.15); NEUTROPHILS PERCENT AUTO 77 % (41-73); NRBC ABSOLUTE 0.03 K/mm3 (0.00-0.02); NRBC Auto 0.4 /100 WBC (0.0-0.2); Platelet Count 71 K/mm3 (150-400); RDW Coefficient Variation 23.9 % (11.7-14.2); RDW Standard Deviation 81.3 fL (35.1-46.3); Red Blood Cell Count 2.14 M/mm3 (4.30-5.90); White Blood Cell Count 6.72 K/mm3 (4.00-11.30)
[2021-06-28 06:02] LABS: Albumin, Blood 2.7 g/dL (3.4-5.0); Anion Gap 8 mmol/L (6-16); Blood Urea Nitrogen 18 mg/dL (8-24); Bun/Creatinine Ratio 24.4 (12.0-20.0); CO2, Blood 23 mmol/L (21-32); Calcium, Blood 7.5 mg/dL (8.5-10.1); Chloride, Blood 104 mmol/L (98-108); Creatinine, Blood 0.74 mg/dL (0.60-1.20); Glomerular Filtration Rate >60 (60-); Glucose, Blood 92 mg/dL (70-99); Phosphorus, Blood 1.5 mg/dL (2.5-4.9); Potassium, Blood 3.2 mmol/L (3.5-5.5); Sodium, Blood 135 mmol/L (136-145)
--- NOTE | 2021-06-28 06:26 | NUR ---
SHIFT SUMMARY: NO ACUTE CHANGES OVERNIGHT. VENT SETTINGS UNCHANGED 16/500/40%/5. STILL HAVING A LARGE AMOUNT OF SECRETIONS, REQUIRING FREQUENT SUCTIONING. LEVOPHED HAS BEEN TITRATED DOWN WELL PROPOFOL. NO EVIDENCE OF CONTINUED BLEEDING TONIGHT. NO BM THIS SHIFT ALTHOUGH FECAL BAG IS STILL ON AND INTACT. NO BLOOD PRODUCTS TRANSFUSED. ABDOMEN IS VERY DISTEDNED AND HARD BUT DOES NOT GUARD WHEN PALPATING
--- NOTE | 2021-06-28 08:10 | NUR ---
ASSUMED CARE: REPORT RECEIVED FROM SYLVIA Marshall RN. ASSUMED CARE OF THIS PT AT APPROX 0700. ON ASSESSMENT, THE PT IS INTUBATED & SEDATED W/ PROPOFOL AT 30 MCG/KG/MIN. EYES ARE NOT OPENING SPONTANEOUSLY, BUT PT DOES TURN HEAD AWAY FROM ORAL CARE. HE IS ALSO COUGHING/ GAGGING WHILE ORAL CARE COMPLETED. VENTILATOR SETTINGS: AC/VC 16/500/5/40% W/ O2 SATS > 92%. PT HAVING MODERATE AMOUNT OF THICK STAPLETON SECRETIONS SUCTIONED THROUGH ETT AFTER COUGHING EPISODE. MONITOR SHOWS SB-SR W/ HR 50-60s, LEVOPHED INFUSING AT 3 MCG/MIN, VASOPRESSIN PLACED IN STANDBY & PT TOLERATING WELL. OGT IN PLACE W/ TUBE FEEDS INFUSING AT GOAL RATE OF 20 ML/HR, MOD RESIDUALS NOTED - SEE I&O. ABD FIRM & DISTENDED, NORMOACTIVE BT NOTED & PT HAVING LIQUID STLS IN RECTAL BAG. SANCHES PATENT/ DRAINING DARK YELLOW URINE IN SMALL AMNTS. SKIN OVERALL FRAGILE & ECCHYMOTIC. BILAT ARMS ARE REDDENED, EDEMATOUS & WEEPING PROFOUSLY. DRY-BENNETT ABSORBENT PADS IN PLACE TO KEEP SKIN DRY. WILL CONTINUE TO MONITOR & UPDATE NEEDED.
--- NOTE | 2021-06-28 11:18 | NUR ---
DR ALCANTAR: PROVIDER AT BEDSIDE THIS AM TO MIKE PT. SHE HAS VERIFIED THAT PALLIATIVE CARE IS FOLLOWING, NO CHANGES AT THIS TIME.
--- NOTE | 2021-06-28 11:50 | NUR ---
SEDATION VACATION: PROPOFOL ON STANDBY FROM APPROX 1035 TO 1145. DURING THIS TIME, THE PT IS ABLE TO OPEN HIS EYES WHEN HIS NAME IS STATED, BUT DOES NOT FOLLOW DIRECTIONS & DEMONSTRATES NO OTHER PURPOSEFUL MOVEMENT OR REACTION. SEDATION RESUMED AT LOWER DOSE FOR INCREASED RR TO 40's & INCREASED PT ANXIETY.
[2021-06-28 12:49] LABS: Automated BF WBC Count 0.232 K/mm3 (0-999); Body Fluid WBC Count 232 /mm3 (0-999)
--- NOTE | 2021-06-28 13:15 | NUR ---
PARACENTESIS: DR ROMAN AT BEDSIDE APPROX 1155 & WOULD LIKE TO COMPLETE A PARACENTESIS FOR THIS PT. PT's ABDOMEN REMAINS FIRM & DISTENDED W/ NORMOACTIVE BT. PARACENTESIS COMPLETED BY DR ROMAN W/ THIS RN AT BEDSIDE TO ASSIST. PROCEDURE OCCURED FROM APPROX 1155 TO 1255 & 7L OF FLUID WAS REMOVED. THE ABDOMEN IS NOW SOFT TO PALPATION & NO LONGER DISTENDED. BP HAS REMAINED STABLE W/ LOW DOSE LEVOPHED INFUSING AT 3 MCG/MIN. URINE OUTPUT INCREASED SUBSTANTIALLY S/P PROCEDURE. A SMALL DRESSING HAS BEEN PLACED OVER THE PUNCTURE SITE & REMAINS CDI. DR ROMAN HAS ORDERED IV ALBUMIN R/T FLUID AMOUNT REMOVED.
[2021-06-28 13:29] LABS: RBC Count, Body Fluid 210 /mm3 (0-0)
[2021-06-28 13:31] LABS: Total Cell Count, Body Fluid 100
[2021-06-28 13:34] LABS: Appearance, Body Fluid Clear (Clear); Color, Body Fluid L Yellow (None-Yellow)
--- NOTE | 2021-06-28 15:15 | NUR ---
TUBE FEEDING: RATE OF TUBE FEEDING INCREASED TO 30 ML/HR PER DIETARY.
--- NOTE | 2021-06-28 16:20 | NUR ---
RECTAL TUBE: FECAL BAG REMOVED FOR RISK OF SKIN BREAKDOWN FOR SURROUNDING TISSUE. SKIN THOROUGHLY CLEANSED & RECTAL TUBE PLACED TO COLLECT DARK BROWN LIQUID STLS.
--- NOTE | 2021-06-28 17:36 | NUR ---
SHIFT SUMMARY: NO ACUTE CHANGES SINCE PRIOR UPDATES. THE PT CONTINUES TO OPEN HIS EYES TO VERBAL STIMULUS BUT DOES NOT FOLLOW DIRECTIONS OR DEMONSTRATE PURPOSEFUL MOVEMENT. LS DIM IN BASES, MODERATE AMNT THICK STAPLETON SPUTUM SUCTIONED THROUGH ETT. VENT BACK TO PRIOR SETTINGS: AC/VC 16/500/5/30% AFTER PT BECAME TACHYPNEIC & RESTLESS, NO LONGER TOLERATING SBT. MONITOR SHOWS SB-SR W/ HR 50-60s, PACs. LEVOPHED INFUSING AT 3 MCG/MIN FOR HYPOTENSION. OGT IN PLACE W/ TUBE FEEDS AT GOAL RATE, MODERATE RESIDUALS - SEE I&O. SANCHES PATENT/ DRAINING COPIOUS AMNTS OF YELLOW URINE S/P PARACENTESIS. SKIN CONDITION OVERALL FRAGILE, ECCHYMOTIC. BILATERAL ARMS CONTINUE TO BE REDDENED & WEEPING. WILL CONTINUE TO MONITOR & REPORT OFF TO ONCOMING RN.
--- NOTE | 2021-06-28 20:00 | NUR ---
ASSUMED CARE OF PT AT 1915. REPORT RECEIVED. PT PRESENTS IN BED. INTUBATED. SEDATED WITH PROPOFOL AT 45 MCG'S. LEVOPHED AT 2 MCG'S/MIN. DECREASED LEVOPHED TO 1 MCG/MIN. WILL TITRATE TO OFF IF ABLE THRU THIS NIGHT. PT IN NO APARENT AT THIS TIME. WILL REVIEW CHART AND PLAN OF CARE FOR THIS PT.
--- NOTE | 2021-06-29 | NUR ---
PT TOLERATING VENT WELL. SECRETIONS SUCTIONED ARE LIGHT STAPLETON AND THIN. HAVE TITRATED LEVOPHED TO OFF. BLOOD PRESSURES REMAIN WITH MAP > 60. ONLY LOW BLOOD PRESSURES DIRECTLY RELATED TO PT POSITION IN BED WITH BP CUFF ABOVE HEART. PT HAS HAD 2200 URINE OUT SANCHES. ABDOMEN SOFT WITHOUT GAURDING. RECTAL TUBE REMAINS INTACT. WILL CONTINUE TO MONITOR PT.
[2021-06-29 03:52] LABS: BASOPHILS ABSOLUTE AUTO 0.03 K/mm3 (0.00-0.23); BASOPHILS PERCENT AUTO 1 % (0-2); EOSINOPHILS ABSOLUTE AUTO 0.05 K/mm3 (0.00-0.68); EOSINOPHILS PERCENT AUTO 1 % (0-6); Hemoglobin 7.4 g/dL (13.5-17.5); IMMATURE GRAN ABSOLUTE AUTO 0.07 K/mm3 (0.00-0.10); IMMATURE GRAN PERCENT AUTO 1 % (0-1); LYMPHOCYTES ABSOLUTE AUTO 0.66 K/mm3 (0.84-5.20); LYMPHOCYTES PERCENT AUTO 12 % (21-46); MONOCYTES ABSOLUTE AUTO 0.67 K/mm3 (0.16-1.47); MONOCYTES PERCENT AUTO 12 % (4-13); Mean Corpuscular HGB 32.5 pg (26.0-34.0); Mean Corpuscular HGB Conc 32.2 g/dL (31.5-36.5); Mean Corpuscular Volume 101 fL (80-100); Mean Platelet Volume 11.2 fL (9.1-12.4); NEUTROPHILS ABSOLUTE AUTO 4.28 K/mm3 (1.96-9.15); NEUTROPHILS PERCENT AUTO 74 % (41-73); Platelet Count 77 K/mm3 (150-400); RDW Coefficient Variation 24.5 % (11.7-14.2); Red Blood Cell Count 2.28 M/mm3 (4.30-5.90); White Blood Cell Count 5.76 K/mm3 (4.00-11.30)
[2021-06-29 04:06] LABS: Alanine Aminotransfer (ALT/SGP 25 U/L (12-78); Albumin, Blood 2.5 g/dL (3.4-5.0); Albumin/Globulin Ratio 1.2 (0.8-1.8); Alk Phos 129 U/L (50-136); Anion Gap 6 mmol/L (6-16); Aspartate Aminotrans (AST/SGOT 49 U/L (12-37); Bilirubin, Total 3.7 mg/dL (0.1-1.0); Blood Urea Nitrogen 17 mg/dL (8-24); Bun/Creatinine Ratio 23.1 (12.0-20.0); CO2, Blood 24 mmol/L (21-32); Calcium, Blood 7.9 mg/dL (8.5-10.1); Chloride, Blood 114 mmol/L (98-108); Creatinine, Blood 0.74 mg/dL (0.60-1.20); Glomerular Filtration Rate >60 (60-); Glucose, Blood 102 mg/dL (70-99); Potassium, Blood 3.1 mmol/L (3.5-5.5); Sodium, Blood 144 mmol/L (136-145); Total Protein, Blood 4.5 g/dL (6.4-8.2)
[2021-06-29 05:41] LABS: International Normalized Ratio 1.25; Prothrombin Time Results 12.9 Sec (9.7-11.5)
--- NOTE | 2021-06-29 06:16 | NUR ---
SEDATION VACATION DONE THIS MORNING. PT AWAKENS AND DOES HAVE INCREASE IN COUGH. ALLOWED VACATION FOR APPROX 45 MINUTES. HAVE BEEN ABLE TO KEEP LEVOPHED OFF. BLOOD PRESSURES REMAIN WITH MAP > 60. MODERATE SECRETIONS FROM ETT. WEEPING EDEMA FOR EXTREMITES. DIGNISHIELD WITH MINIMAL OUTPUT. APPROX 2500 ML URINE OUTPUT. WILL CONTINUE TO MONITOR PT, AND WILL REPORT OFF TO ONCOMING RN.
--- NOTE | 2021-06-29 07:00 | NUR ---
ASSUME CARE: I have assumed care of pt at this time.
--- NOTE | 2021-06-29 17:53 | NUR ---
END OF SHIFT SUMMARY: Pt unresponsive to stimuli for most of the day. Ammonia at 63; lactulose started PT. Propofol titrated off; Precedex now at 0.4 for ventilator compliance. He is now moving his lower extremities, but does not open his eyes or follow direction. Vent settings at AC/VC, fi02 30%, peep 5. Moderate amount of thick, skaggs secretions from in-line suction; large amounds of oral secretions obtained today. Abd pad applied over paracentesis site due to weeping. BUE weeping serous fluid. Minimal residuals from OG. Rectal tube draining black, malodorous stool.
--- NOTE | 2021-06-29 20:00 | NUR ---
ASSUMED CARE OF PT AT 1915. REPORT RECEIVED AT BEDSIDE. PT PRESENTS IN BED. AC 16, Tv 500, PEEP 5, FIO2 30%. PT MAINTAINS SATURATIONS > 90 PERCENT. BLOOD PRESSURES SOMEWHAT SOFT. WILL MONITOR FOR POSSIBLE REASTABLISHING LEVOPHED DRIP. NO ACTIVE BLEEDING NOTED. DARK STOOL FROM [facility]. WILL REVIEW CHART AND PLAN OF CARE FOR THIS PT.
[2021-06-30 05:28] LABS: BASOPHILS ABSOLUTE AUTO 0.04 K/mm3 (0.00-0.23); BASOPHILS PERCENT AUTO 1 % (0-2); EOSINOPHILS ABSOLUTE AUTO 0.09 K/mm3 (0.00-0.68); EOSINOPHILS PERCENT AUTO 1 % (0-6); Hematocrit 25.4 % (37.0-53.0); Hemoglobin 8.1 g/dL (13.5-17.5); IMMATURE GRAN ABSOLUTE AUTO 0.09 K/mm3 (0.00-0.10); IMMATURE GRAN PERCENT AUTO 1 % (0-1); LYMPHOCYTES ABSOLUTE AUTO 1.03 K/mm3 (0.84-5.20); LYMPHOCYTES PERCENT AUTO 14 % (21-46); MONOCYTES ABSOLUTE AUTO 0.94 K/mm3 (0.16-1.47); MONOCYTES PERCENT AUTO 13 % (4-13); Mean Corpuscular HGB 32.8 pg (26.0-34.0); Mean Corpuscular HGB Conc 31.9 g/dL (31.5-36.5); Mean Corpuscular Volume 103 fL (80-100); Mean Platelet Volume 11.6 fL (9.1-12.4); NEUTROPHILS ABSOLUTE AUTO 5.32 K/mm3 (1.96-9.15); NEUTROPHILS PERCENT AUTO 71 % (41-73); Platelet Count 78 K/mm3 (150-400); RDW Coefficient Variation 25.2 % (11.7-14.2); RDW Standard Deviation 90.3 fL (35.1-46.3); Red Blood Cell Count 2.47 M/mm3 (4.30-5.90); White Blood Cell Count 7.51 K/mm3 (4.00-11.30)
[2021-06-30 05:45] LABS: Anion Gap 7 mmol/L (6-16); Blood Urea Nitrogen 26 mg/dL (8-24); CO2, Blood 24 mmol/L (21-32); Calcium, Blood 8.1 mg/dL (8.5-10.1); Chloride, Blood 115 mmol/L (98-108); Creatinine, Blood 0.79 mg/dL (0.60-1.20); Glomerular Filtration Rate >60 (60-); Glucose, Blood 113 mg/dL (70-99); Potassium, Blood 3.6 mmol/L (3.5-5.5); Sodium, Blood 146 mmol/L (136-145)
--- NOTE | 2021-06-30 06:30 | NUR ---
PT CONTINUES WITH WEEPING EDEMA FROM PARACENTESIS SITE, AND FROM UPPER EXTREMITIES. PT HAS FULL CIRCUIT CHANGED FROM VENT AND NEW HOL[place]. HAVE MEDICATED PT ONCE WITH 50 MCG'S FENTANYL PRIOR TO CHANGE OUT FOR PT'S COMFORT. PRECEDEX HAS REMAINED AT 0.3 MCG'S WHICH IS HELPFUL WITH VENT TOLERANCE. WILL CONTINUE TO MONITOR PT, AND WILL REPORT OFF TO ONCOMING RN.
--- NOTE | 2021-06-30 07:00 | NUR ---
ASSUME CARE: I have assumed care of pt at this time.
--- NOTE | 2021-06-30 19:21 | NUR ---
SHIFT SUMMARY: Pt now opening his eyes spontaneously; he is not tracking or following commands. Precedex now at 0.6 and 25mg dose of PRN fentanyl given for vent compliance. Norepi up to 3 mcg. 100 mls of black stool out. Vent settings at AC/VC 35%, PEEP 5.
--- NOTE | 2021-06-30 20:04 | NUR ---
DR ROMAN IS CONTACTED FOR TRENDING HYPOTENSION AND INCREASING NEED FOR PRESSORS. ORDERS FOR STAT H&H RECEIVED AND WILL TRANSFUSE 1 UNIT PRBC FOR HGB <7. MAY ALSO ADD VASOPRESSIN GTT IF PT IS REQUIRING LEVOPHED INCREASED TO 12MCG. ELECTROLYTE PROTOCOL RENEWED.
[2021-06-30 20:29] LABS: Hematocrit 27.1 % (37.0-53.0); Hemoglobin 8.7 g/dL (13.5-17.5)
--- NOTE | 2021-07-01 00:35 | NUR ---
DR RIZZO UPDATED WITH PT'S TRENDING VS. MAY GIVE NS 500ML BOLUS AND THEN 75ML/HR UNTIL LITER COMPLETE IF NEEDED.
[2021-07-01 04:10] LABS: BASOPHILS ABSOLUTE AUTO 0.05 K/mm3 (0.00-0.23); BASOPHILS PERCENT AUTO 0 % (0-2); EOSINOPHILS ABSOLUTE AUTO 0.07 K/mm3 (0.00-0.68); EOSINOPHILS PERCENT AUTO 1 % (0-6); Hematocrit 25.8 % (37.0-53.0); Hemoglobin 8.3 g/dL (13.5-17.5); IMMATURE GRAN ABSOLUTE AUTO 0.24 K/mm3 (0.00-0.10); IMMATURE GRAN PERCENT AUTO 2 % (0-1); LYMPHOCYTES ABSOLUTE AUTO 1.47 K/mm3 (0.84-5.20); LYMPHOCYTES PERCENT AUTO 13 % (21-46); MONOCYTES ABSOLUTE AUTO 1.57 K/mm3 (0.16-1.47); MONOCYTES PERCENT AUTO 14 % (4-13); Mean Corpuscular HGB 33.1 pg (26.0-34.0); Mean Corpuscular HGB Conc 32.2 g/dL (31.5-36.5); Mean Corpuscular Volume 103 fL (80-100); Mean Platelet Volume 11.2 fL (9.1-12.4); NEUTROPHILS ABSOLUTE AUTO 8.27 K/mm3 (1.96-9.15); NEUTROPHILS PERCENT AUTO 71 % (41-73); NRBC ABSOLUTE 0.02 K/mm3 (0.00-0.02); NRBC Auto 0.2 /100 WBC (0.0-0.2); Platelet Count 92 K/mm3 (150-400); RDW Coefficient Variation 25.2 % (11.7-14.2); Red Blood Cell Count 2.51 M/mm3 (4.30-5.90); White Blood Cell Count 11.67 K/mm3 (4.00-11.30)
[2021-07-01 04:29] LABS: Anion Gap 7 mmol/L (6-16); Blood Urea Nitrogen 27 mg/dL (8-24); Bun/Creatinine Ratio 36.4 (12.0-20.0); CO2, Blood 24 mmol/L (21-32); Calcium, Blood 7.8 mg/dL (8.5-10.1); Chloride, Blood 113 mmol/L (98-108); Creatinine, Blood 0.74 mg/dL (0.60-1.20); Glomerular Filtration Rate >60 (60-); Glucose, Blood 141 mg/dL (70-99); Phosphorus, Blood 2.4 mg/dL (2.5-4.9); Potassium, Blood 3.8 mmol/L (3.5-5.5); Sodium, Blood 144 mmol/L (136-145)
--- NOTE | 2021-07-01 06:11 | NUR ---
PT'S BP TRENDS DOWN OVERNIGHT REQUIRING MORE PRESSORS. DEX IS ALSO TITRATED DOWN DUE TO HR AND PT OCC OPENS EYES SPONTANEOUSLY, BUT DOES NOT MAKE EYE CONTACT OR FOLLOW COMMANDS. SKIN CONTINUES TO WEEP FROM ARMS AND ABD. WILL CONTINUE TO MONITOR AND REPORT TO ONCOMING SHIFT.
--- NOTE | 2021-07-01 07:00 | NUR ---
ASSUME CARE: I have assumed care of pt. At this time he is on the ventilator with levophed at 12, vasopressin 0.02, precedex 0.2, and IVMF at 75.
--- NOTE | 2021-07-01 18:45 | NUR ---
SHIFT SUMMARY: Code status changed to DNR today. Palliative care and ethics involved; plan to transition to comfort care 07/02/21. Vasopressin at 0.04, levo at 6, precedex at 0.5. Albumin given. Pt continues to have copious amounts of oral secretions and large amounts of thick in-line secretions. Vent settings unchanged; AC/VC, 30% fiO2, peep 5.
[2021-07-02 03:56] LABS: BASOPHILS ABSOLUTE AUTO 0.05 K/mm3 (0.00-0.23); BASOPHILS PERCENT AUTO 1 % (0-2); EOSINOPHILS ABSOLUTE AUTO 0.22 K/mm3 (0.00-0.68); EOSINOPHILS PERCENT AUTO 3 % (0-6); Hematocrit 23.1 % (37.0-53.0); Hemoglobin 7.4 g/dL (13.5-17.5); IMMATURE GRAN ABSOLUTE AUTO 0.13 K/mm3 (0.00-0.10); IMMATURE GRAN PERCENT AUTO 2 % (0-1); LYMPHOCYTES ABSOLUTE AUTO 1.37 K/mm3 (0.84-5.20); LYMPHOCYTES PERCENT AUTO 16 % (21-46); MONOCYTES ABSOLUTE AUTO 1.04 K/mm3 (0.16-1.47); MONOCYTES PERCENT AUTO 12 % (4-13); Mean Corpuscular HGB 33.6 pg (26.0-34.0); Mean Corpuscular Volume 105 fL (80-100); Mean Platelet Volume 11.3 fL (9.1-12.4); NEUTROPHILS ABSOLUTE AUTO 5.95 K/mm3 (1.96-9.15); NEUTROPHILS PERCENT AUTO 68 % (41-73); NRBC ABSOLUTE 0.02 K/mm3 (0.00-0.02); NRBC Auto 0.2 /100 WBC (0.0-0.2); Platelet Count 74 K/mm3 (150-400); RDW Coefficient Variation 25.1 % (11.7-14.2); RDW Standard Deviation 94.1 fL (35.1-46.3); White Blood Cell Count 8.76 K/mm3 (4.00-11.30)
[2021-07-02 04:11] LABS: Anion Gap 5 mmol/L (6-16); Blood Urea Nitrogen 30 mg/dL (8-24); Bun/Creatinine Ratio 46.2 (12.0-20.0); CO2, Blood 25 mmol/L (21-32); Calcium, Blood 8.2 mg/dL (8.5-10.1); Chloride, Blood 113 mmol/L (98-108); Creatinine, Blood 0.65 mg/dL (0.60-1.20); Glomerular Filtration Rate >60 (60-); Glucose, Blood 126 mg/dL (70-99); Phosphorus, Blood 1.8 mg/dL (2.5-4.9); Potassium, Blood 3.9 mmol/L (3.5-5.5); Sodium, Blood 143 mmol/L (136-145)
--- NOTE | 2021-07-02 06:19 | NUR ---
NO SIGNIFICANT CHANGES IN PT'S CONDITION OVERNIGHT. HE CONTINUES TO OPEN HIS EYES OCCASIONALLY, BUT DOES NOT TRACK OR FOLLOW COMMANDS. HE SHAKES HIS HEAD SIDE TO SIDE WITH ORAL CARE. VENT SETTINGS UNCHANGED. LS CLEAR, OCC COARSE IN BASES. ABD DISTENDED AND TIGHT, WEEPING FROM PARACENTESIS SITE AND FROM ARMS. LEVOPHED AND VASOPRESSION CONTINUED FOR BP SUPPORT. PRECEDEX IS CURRENTLY AT 0.4MCG/KG/HR FOR VENT TOLERANCE. WILL CONTINUE TO MONITOR AND REPORT TO ONCOMING SHIFT.
--- NOTE | 2021-07-02 07:59 | NUR ---
Received report from Ginette CHRISTIAN. Patient remains intubated 8.0 ET and 25 cm at gum with vent settings 16/500/30/5 and sats 97%. He withdrawls with oral care and currently no extremity movement. He has PICC line to [place] dressing intact and site WNL's and is infusing Levophed at 6 mcg/min, Precedex at 0.5 mcg/kg/hr, NS TKO, Vasopressin 0.04 units/min, and K phos rider. He has OG in place and in infusing VHP at 30ml/hr at goal rate and less than 50ml residual. Rectal tube in place dark green output. He has 14 Fr arnold draining to gravity geovany colored urine. SCD to LLE. Has steri strips on left cheek from skin tear from ET securement device. He is weeping bilateral UE's. He has mepelex style dressing to coccyx, and left hip. Dr Oakley by and quick assessment and continue current treatment.
--- NOTE | 2021-07-02 08:10 | NUR ---
RT placed him on spon mode at PS5/30%/5 and tolerating currently.
--- NOTE | 2021-07-02 09:29 | NUR ---
PLACED BACK ON AC 16/500/30/5 SATS >90%. INCREASED ORAL AND ET SECRETIONS.
--- NOTE | 2021-07-02 11:52 | NUR ---
Patient continues with copius secretions. He has been resting better and AC mode 16/500/30/5 and sats >90%. No changes in gtt's. He continues to have liquid dark green stools. Friends have called to check on him and neighbor is going to come by today to see him. Velez patent and draining to gravity.
--- NOTE | 2021-07-02 15:02 | NUR ---
No changes to vent and remains on AC /30/5 and sats >90% with still copius secretions oral and ET. Neighbor by and has names of children and SS#'s and has been trying to find contact numbers. Gtt remains the sameLevophed at 6 mcg/min and systolics low 100's, Vasopressin 0.04 units/min, Precedex 0.5 mcg/kg/hr, NS TKO. Restarints remains in place as he will lift arms and grab at lines and tubes.
--- NOTE | 2021-07-02 15:30 | NUR ---
Still trying to contact family in [place]. Patient vent settings 16/500/30/5 and sats 94%. Gtt's remains at same rate. Frequent suctioning oral and ET. Neighbor remains at bedside and is trying to find family contacts as well. SR 70's and systolics 90-100's. Withdrawls from care and nocious stimuli.
--- NOTE | 2021-07-02 15:33 | NUR ---
Ethics case review facilitated. The principal is medically confirmed to be in a terminal condition and is scheduled for extubation. A good lucina effort has been coordinated to locate family members, but so far has produced no meaningful benefit. In situations where continued treatment would be disproportionate or clinically inappropriate, in the absence of outside decision maker engagement, per ORS 127.635, we default to two provider attestation to legally support the de-escelation of care. Thank you for this consult. Jozef Cavanaugh ThD, JAMILA
--- NOTE | 2021-07-02 18:02 | NUR ---
Patient extubated 0 and placed on 4L O2 via NC and sats >95%. Patient coughing thick secretions and frequent suctioning. Dr Oakley placed comfort care orders. His children have been contacted and updated. Neighbor that cares for his has talked with both of them and she will give them updates. I was able to contact through family on facebook and online white pages. I gave each update as well. All sedation and pressors have camilo turned off. Pressors starting to gone down.
--- NOTE | 2021-07-02 18:13 | NUR ---
Spiritual Care visit at the request of pallative care. Pt. is non resposive and on a ventilator. Two younger friends present in the room. Facilitated a life review with the friends who were caring for pt. Identified an estranged family. One of the friends departed. While present decision was made to remove the ventilator. Prayed over pt. and sat and read scripture with the one remaining friend present. Will [facility] [place] [facility] [place] back to monitor status of patient and friend.
--- NOTE | 2021-07-02 19:20 | NUR ---
ASSUMED CARE OF PT AT 1900. PT WAS EXTUBATED TODAY AND MADE COMFORT CARE AT 1650. PT IS ESTRANGED FROM HIS CHILDREN WHO LIVE IN [place] FOR MANY YEARS, NEIGHBOR, GAEL, IS AT BEDSIDE. GAEL STATES THAT HE AND HIS SO RG LIVE NEXT DOOR AND LOOK IN ON HIM SINCE PT'S GIRLFRIEND 2 YEARS AGO. GAEL SHARES THAT PT ENJOYS CIGARS AND DR GONZALEZ, SO A CAN OF DR GONZALEZ IS OPENED AT THE BEDSIDE. HE ALSO SHARES THAT PT KEEPS HIS HOUSE VERY WARM, SO WARM BLANKETS ARE PROVIDED. PT APPEARS CALM AND RESTFUL, HAS OCC COUGH AND REACHES HIS R ARM UP BRIEFLY, THEN RELAXES. WILL CONTINUE TO MONITOR.
--- NOTE | 2021-07-02 21:20 | NUR ---
GAEL MENA, CONTINUES AT BEDSIDE. PT IS REPOSITIONED AND APPEARS RESTFUL. OCC COUGH.
--- NOTE | 2021-07-02 22:31 | NUR ---
PILLOWS ADJUSTED AND PT IS MEDICATED FOR PAIN DUE TO RESTLESSNESS AND FACIAL GRIMACE. FRIEND, GAEL, CONTINUES AT BEDSIDE, DECLINES ANY NEEDS AT THIS TIME.
--- NOTE | 2021-07-03 00:30 | NUR ---
PT'S FRIEND GAEL GOES HOME AND TAKES PT'S BELONGINGS, EXCEPT FOR HIS WC, HOME. REQUESTS CALL IF PT PASSES. WILL RETURN IN THE MORNING.
--- NOTE | 2021-07-03 05:19 | NUR ---
PT IS MEDICATED WITH ATIVAN AND REPOSITIONED.
--- NOTE | 2021-07-03 05:57 | NUR ---
NO SIGNIFICANT CHANGES IN PT CONDITION OVERNIGHT. HE DOES NOT RESPOND TO VOICE OR PAIN, BUT HAS OCC GRIMACE WITH ORAL CARE OR REPOSITIONING. HE IS MEDICATED FRO PAIN AND ANXIETY. BATH AND LINEN CHANGE COMPLETED. HIS FRIEND AND NEIGHBOR GAEL WAS UNABLE TO STAY OVERNIGHT, BUT WILL TOUCH BASE IN THE MORNING. WILL CONTINUE TO MONITOR AND REPORT TO ONCOMING SHIFT.
--- NOTE | 2021-07-03 07:36 | NUR ---
Received report from Ginette CHRISTIAN. Patient on RA and tachypneic and sats in the 80's. He is on comfort care. Neighbor called to check on him. Medicated for pain about every two hours with fentanyl. 14Fr arnold draining to gravity geovany colored urine. He also has rectal tube in place dark brown liquid stool.
--- NOTE | 2021-07-03 09:45 | NUR ---
No significant changes with patient. RR increased and medicated per MAR. Sats on RA 80's.
--- NOTE | 2021-07-03 11:19 | NUR ---
Spiritual Care visit. Pt. is resting and mostly unresponsive. Breathing on his own. Neighbor friend (Zafar) was present. Facilitated an update from Zafar. Pastoral Prayed for Pt. Friend displayed understanding and apprieciation. Rerquest ICU desk to notify me if there was a change in pts. status. (Note: the pts. family has been estranged for years. The primary support and care has been coming from neighbors Nena and Zafar)
--- NOTE | 2021-07-03 11:30 | NUR ---
Oral care and moisten mouth from breathing open mouth. HR in the 90's and sats 80's Zafar his neighbor came by to sit with him for several hours. He opens eye when calling his name but no other interaction.
--- NOTE | 2021-07-03 12:30 | NUR ---
Pulled twice 100mcg and gave 75 mcg and in pyxis said 1mcg and the other stated 0.01 mcg. Witness by Nasrin CHRISTIAN
--- NOTE | 2021-07-03 14:21 | NUR ---
Spiritual Care visit. Pt. is non-responsive, and is breathing on his own. No others present. Read scripture, and pastorally prayed over him.
--- NOTE | 2021-07-03 16:39 | NUR ---
Spiritual Care visit. No apparent change in pt. Friend Nena (neighbor) who is a caregiver is present. Facilitated some more family connection discussion. A son is attempting to fly in to see Pt. Plans to arrive in AM. Provided calming presence. Friend verbalized gratitude for care received. We want to honor the pt. by being present. Departed because of trauma call. Returned with the plan on checkingon pt. before end of shift.
--- NOTE | 2021-07-03 17:30 | NUR ---
Repositioned patient and oral care to moisten mouth. Neighbor Vick by and spent time with him and held phone to ear so his kids could speak to him. Sats in the 80's and HR 90's. No real changes this shift.
--- NOTE | 2021-07-03 17:43 | NUR ---
Pt remains on comfort care. He appears comfortable, and bedside nurse monitoring and treating pain as needed. No changes to care plan needed at this time.
--- NOTE | 2021-07-04 06:18 | NUR ---
SHIFT SUMMARY ASSUMED CARE OF PT AT 1900. PT IS NOT ALERT OR ORIENTED. PT IS NONRESPONSIVE. OPT IS MOUTH BREATHING. PT BREATHS BETTER ON HIS SIDE. ABD IS SOFT BUT DISTENDED. PT IS WEEPING FROM HIS L ELBOW AND BUTTOCK. WOUND ON BUTTOCK WAS CLEANED AND DRESSED. PT HAS A RECTAL TUBE AND SANCHES CATHETER, DRAINING WITH GRAVITY. PT WAS MEDICATED WITH ATIVAN AND FENTYAL FOR PAIN AND DISCOMFORT. PT HAS A SMALL RUN OF SVT AT AROUND 0300 BUT HAS BEEN NSR SINCE. CAREGIVER RG CALLED AND UPDATED, SAID SON WILL ARRIVE TOMORROW. PT DAUGHTER NEERAJ CALLED AND WAS ALSO UPDATED. CALL LIGHT IN REACH, BED IN LOWEST POSITION.
--- NOTE | 2021-07-04 13:07 | NUR ---
PT HAS BEEN RESTING IN BED. APPEARS COMFORTABLE AT THIS TIME. MEDICATED THIS MORNING WHEN PT APPEARED DYSPNEIC AND HAD GOOD EFFECT WITH THE MEDICATIONS. HR REMAINS IN THE 90S. RR IN THE 30S. PT'S SON CALLED AND SAYS HE EXPECTS TO BE HERE ABOUT 1445 (HE IS DRIVING UP FROM [employer]). HEARING IMPAIRED TEACHER AWARE AND WILL BE BY TO PROVIDE SUPPORT.
--- NOTE | 2021-07-04 13:30 | NUR ---
Pt. is still in comfort care and non responsive. Nurse staff informed me about a son who will arrive this afternoon. I will return to connect and support the son.
--- NOTE | 2021-07-04 16:32 | NUR ---
Spiritual Care note. Pt. still non responsive. Son present. Faciltated a life review revealing past broken relationship with pt. Listened empathetically. Friend and neighbor Vick arrived. I was called out to another pt. Will [place] back for spiritual care with son.
--- NOTE | 2021-07-04 19:50 | NUR ---
assumed care after report recv'd assessment completed. oral care, arnold care completed. turned and repositioned.
--- NOTE | 2021-07-04 20:45 | NUR ---
report called to medical floor. son at bedside, advised moving to room 343. transported to new room via bed.
--- NOTE | 2021-07-04 21:31 | NUR ---
Pt was transferred from ICU to room 343. Pt is unresponsive to verbal stimli, did not react when moved from bed to bed. Pt skin is dry, jaundiced. Velez cath in place. Rectal tube is also in place. Mepilex to coccyx. Pt with rapid respirations in the 30's. Pt positioned supine with arms elevated for edema in hands and arms. Son is at bedside. Pt is comfort care. SOCIAL WORK PROFESSOR did oral care.
--- NOTE | 2021-07-05 03:15 | NUR ---
0200 PATTIENT IS BREATHING FASTER, SEEMS MORE RESTLESS , MOVING HEAD. PT MEDICATED WITH ATIVAN 1MG. PT REPOSITIONED TO RIGHT SIDE. LEFT ARM IS WEEPING, LINEN UNDER ARM CHANGED. 0300 PT REMAINS UNCOMFORTABLE LOOKING, STILL RAPID RESPIRATIONS. MEDICATED WITH FENTANYL 50 MG VIA PICC LINE. STARTING TO HAVE DEEP THROAT SECRETIONS, 3 ATROPINE DROPS GIVEN. SON IS SLEEPING AT BEDSIDE. WILL CONTINUE TO MONITOR AND SUPPORT.
--- NOTE | 2021-07-05 06:10 | NUR ---
PT CONTINUES TO BE UNRESPONSIVE, RESPIRATIONS DEEP AND IN THE 30'S. REPOSITIONED TO RT SIDE. CATH CARE DONE, ORAL CARE DONE. SON IS AT BEDSIDE, SHARING STORIES ABOUT PT. PICC LINE, ONLY RED TIP LINE ORKS. SANCHES CATH WITH DK DEEPTI URINE. RECTAL TUBE IN PLACE, SM AMOUNT OF LIQUID STOOL NOTED. CONTINUE COMFORT CARE.
--- NOTE | 2021-07-05 12:08 | NUR ---
Pt transferred from ICU on comfort care. He is no longer responsive, and has agonal breathing. No s/s of distress noted. No changes needed to care plan at this time.
--- NOTE | 2021-07-05 18:24 | NUR ---
Spiritual Care visit. Pt. continues to have labored breathing. Son is present. Facilitated forgiveness from the son to the pt. Provided pastoral career technical counselor. Son displayed remorse and gratitude. Son verbalized his gratitude for the care the pt. had been given. Pastorally prayed for both the Pt. and the son.
--- NOTE | 2021-07-05 19:26 | NUR ---
SHIFT SUMMARY PT IS UNRESPONSIVE TO TACTILE OR PAINFUL STIMULI. HAS NO RESPONSE TO MOVEMENT. APPEARS AND HAS BEEN EXTREMELY RESTLESS AND AIR HUNGRY ALL DAY. HAD LABORED AND INCREASED BREATHING THROUGHOUT THE DAY. MENTIONED AIR HUNGER TO PALLATIVE AND AWAITED RESPONSE UNTIL PM AND DID RECEIVE SOME ORDER CHANGES FROM DR. DUMONT. PT WAS ORIGINALLY UNABLE TO HAVE MORPHINE R/T ALLERGY ON CHART BUT WAS LATER DECIDED THAT THE BENEFITS FOR BREATHING OUTWEIGHED THE RISK IN THIS CASE. HE RECEIVED IV FENTANYL 75MG Q3H AND ATIVAN 1MG FOR THE DAY WITH NO RELIEF AND THIS PM RECEIVED NEW MED ORDER FOR INCREASED DOSE OF ATIVAN 2MG IV AND ROXANOL 20MG ALONG GIVEN WITH BENADRYL ELIXOR 25 MG AND PATIENT DID SHOW SMALL DECREASE IN AIR HUNGER AND LABORED BREATHING. SON IS AT BEDSIDE AND DID RECEIVE PASTORAL CARE VISIT THIS PM. THIS NURSE ALSO SPOKE WITH HIM ABOUT END OF LIFE TRANSITION AND CARE PROVIDED AND ANSWERED QUESTIONS FOR HIM. SANCHES WITH DARK TEA COLORED URINE DRAINING SMALL AMOUNT AND FECAL TUBE WITH DARK BROWN STOOL NOTED AT BS. ORAL CARE EVERY 2 HOURS PERFORMED AND REPOSITIONING. WILL CONTINUE TO MONITOR IN CARE/
--- NOTE | 2021-07-06 01:37 | NUR ---
PT AT 0100. PT SON JOSE RAMON MORLEY NOTIFIED AT 0115. WAITING FOR PT SON TO CONTACT ME TO WHICH HOME HE WOULD LIKE TO BE NOTIFIED.
--- NOTE | 2021-07-06 04:40 | NUR ---
SPOKE TO PT SON, JOSE RAMON. HE WOULD LIKE [facility] THE HOME FOR HIS FATHER.
--- NOTE | 2021-07-06 04:47 | NUR ---
ROSHAN (LUIS ANTONIO) HERE [id number]
== END 2021-07-06 01:00 | DRG 870 ==
LOC: ER 15:31 → ICUW 18:29 → ERHOLD 18:29 → ICUW 21:15 → MEDS 07-04 20:42
PROVIDERS: Emergency Medicine; Internal Medicine; Internal Medicine Critical Care Medicine; Student in an Organized Health Care Education/Training Program; ADMIT Internal Medicine
PROC: 5A1955Z Respiratory Ventilation, Greater than 96 Consecutive Hours (ICD-10-PCS; principal; 2021-06-24)
PROC: 30233N1 Transfusion of Nonautologous Red Blood Cells into Peripheral Vein, Percutaneous Approach (ICD-10-PCS; 2021-06-24)
PROC: 0BH17EZ Insertion of Endotracheal Airway into Trachea, Via Natural or Artificial Opening (ICD-10-PCS; 2021-06-24)
PROC: 3E033XZ Introduction of Vasopressor into Peripheral Vein, Percutaneous Approach (ICD-10-PCS; 2021-06-24)
PROC: 3E02340 Introduction of Influenza Vaccine into Muscle, Percutaneous Approach (ICD-10-PCS; 2021-06-24)
PROC: 0DJ08ZZ Inspection of Upper Intestinal Tract, Via Natural or Artificial Opening Endoscopic (ICD-10-PCS; 2021-06-25)
PROC: 02HV33Z Insertion of Infusion Device into Superior Vena Cava, Percutaneous Approach (ICD-10-PCS; 2021-06-26)
PROC: 0W9G30Z Drainage of Peritoneal Cavity with Drainage Device, Percutaneous Approach (ICD-10-PCS; 2021-06-28)
DX: A41.9 Sepsis, unspecified organism (principal); R65.21 Severe sepsis with septic shock; J96.01 Acute respiratory failure with hypoxia; I85.11 Secondary esophageal varices with bleeding; B37.1 Pulmonary candidiasis; J15.20 Pneumonia due to staphylococcus, unspecified; Z66 Do not resuscitate; Z51.5 Encounter for palliative care; D62 Acute posthemorrhagic anemia; N17.9 Acute kidney failure, unspecified; J44.0 Chronic obstructive pulmonary disease with (acute) lower respiratory infection; E87.2 Acidosis; Z20.822 Contact with and (suspected) exposure to COVID-19; I46.9 Cardiac arrest, cause unspecified; Z78.1 Physical restraint status; Z23 Encounter for immunization; R57.8 Other shock; K72.90 Hepatic failure, unspecified without coma; K70.40 Alcoholic hepatic failure without coma; K70.31 Alcoholic cirrhosis of liver with ascites; D69.6 Thrombocytopenia, unspecified; F10.20 Alcohol dependence, uncomplicated; E78.5 Hyperlipidemia, unspecified; F17.210 Nicotine dependence, cigarettes, uncomplicated; Z88.5 Allergy status to narcotic agent; Z79.899 Other long term (current) drug therapy; Z89.511 Acquired absence of right leg below knee; Z89.112 Acquired absence of left hand; Z89.111 Acquired absence of right hand
CPT/HCPCS: 0241U; 31500; 31720; 36415; 36430; 36569; 51702; 71045; 74018; 80048; 80053; 80069; 81001; 82103; 82140; 82248; 82390; 82728; 83540; 83550; 83735; 83880; 84100; 84484; 85014; 85018; 85025; 85610; 86015; 86038; 86381; 86850; 86900; 86901; 86923; 87070; 87075; 87205; 89051; 90686; 93005; 93010; 93306; 94002; 94003; 96361; 96365; 96366; 96367; 96368; 96375; 99285-25; A9270; C1751; C1894; C9113; J0171; J0692; J0696; J1430; J1644; J1956; J2060; J2354; J2704; J2765; J3010; J3370; J3480; J7030; J7040; J7050; J7060; P9016; P9046